=== PATIENT | female | born 1950 | race Caucasian/White ===

== ENCOUNTER 2016-12-05 12:28 | Emergency (ER) | payer OTHER ==
[2016-12-05 12:39] VITALS: BP 143/50; PULSE 76; RESP 16; TEMP 97.2; O2SAT 94
[2016-12-05] MEDS ORDERED: IPRATROPIUM/ALBUTEROL 3 ML DEYVIAL IH ONE (13:05)
[2016-12-05] MEDS ORDERED: DEXAMETHASONE 4 MG TAB PO ONE (13:05)
--- NOTE | 2016-12-05 13:35 | UCPHY ---
H & P Patient Type: New Chief Complaint Nursing Narrative: coughing post ingesting flavoring for water/ st Time Seen by Provider: 12/05/16 12:50 HPI/ROS: This patient used a flavor enhancer called Sukumar - forman flavored that she has a use intermittently but used to a large amount last night and shortly thereafter developed a swollen feeling in her throat continues associated with mild discomfort and feeling of tightness in the bronchi that feels similar to episodes she had with asthma in the past though she has not had asthma for years. She reports some anxiety associated with the symptoms. She went to a little clinic in grocery store this morning and they initially wanted to send her by ambulance the hospital but she declined and came here instead for evaluation. She reports frequent dry cough since the ingestion. ROS: No respiratory distress. No vomiting. No drooling stridor or hoarse voice. She felt well prior to ingesting the flavor enhancer. She reports no lightheadedness. And 7 point ROS is otherwise negative. Source: Patient Exam Limitations: No limitations - Personal History Current Tetanus/Diphtheria Vaccine: Yes - Medical/Surgical History PMH: Asthma -no symptoms for many years Hx Asthma: Yes Hx Chronic Respiratory Disease: No Hx Diabetes: No Hx Cardiac Disease: No Hx Renal Disease: No Hx Cirrhosis: No Hx Alcoholism: No Hx HIV/AIDS: No Hx Splenectomy or Spleen Trauma: No Other PMH: hip fx - Family History Significant Family History: No pertinent family hx - Social History Smoking Status: Never smoked Alcohol Use: Occasionally Drug Use: None - Physical Exam Exam: Physical Exam Vital signs are normal. General: No acute distress HEENT: Nose: Clear oropharynx: Clear with no erythema or exudates in posterior pharynx. No dysphonia. No drooling or stridor. Eyes: Pupils equal and react to light. Extraocular motions are intact. Lungs: Clear to auscultation bilaterally but with cough she has faint expiratory wheeze No respiratory distress. Cardiac: Regular rate and rhythm with no murmur gallop or rub Skin: No rash or pallor. Neuro: Alert and oriented x3 with no sensorimotor deficits. Initial differential diagnosis - allergy to the flavor enhancer, asthma exacerbation, laryngeal swelling Constitutional: Initial Vital Signs Temperature (C) 36.2 C 12/05/16 12:36 Heart Rate 76 12/05/16 12:36 Respiratory Rate 16 12/05/16 12:36 Blood Pressure 143/50 H 12/05/16 12:36 O2 Sat (%) 94 12/05/16 12:36 O2 Delivery Mode Room Air Allergies/Adverse Reactions: No Known Allergies Allergy (Verified 12/05/16 12:35) Home Medications: Medication Instructions Recorded Calcium Carbonate/Vitamin D3 1 each PO DAILY 08/29/14 [Calcium 500-Vit D3 200 Tablet] Cyanocobalamin (Vitamin B-12) 1,000 mcg PO DAILY 08/29/14 [B-12] Alendronate Sodium [Fosamax 70 MG 70 mg PO Q7D #4 tab 09/24/14 (*)] Cholecalciferol (Vitamin D3) 2,000 iunits PO DAILY #30 cap 09/24/14 [Cholecalciferol] Citalopram [CeleXA 20 MG] 40 mg PO DAILY #30 tab 09/24/14 Omeprazole [Prilosec 20 mg] 20 mg PO DAILY #30 capsule. 09/24/14 Albuterol Hfa Anes Only [Proair 2 puffs IH Q4 PRN #1 mdi 12/05/16 Hfa Icu (*)] Fluticasone Hfa 220 Mcg [Flovent 2 puffs IH DAILY #1 mdi 12/05/16 220 MCG Hfa MDI (*)] Medical Decision Making ED Course/Re-evaluation: Decadron 8 mg p.o. DuoNeb with resolution of her frequent cough and a subjective improvement. She declined anything for throat discomfort thereafter. I counseled patient regarding food allergies. Review of the ingredients reveals red number 40. I think it is likely that she has an allergy to his diaper counseled regarding this. She does not appear to have findings for anaphylaxis. No other concerning findings. - Data Points Medications Given: Discontinued Medications Albuterol/Ipratropium (Duoneb) 3 ml IH EDNOW ONE Stop: 12/05/16 13:06 Last Admin: 12/05/16 13:20 Dose: 3 ml Dexamethasone (Decadron) 8 mg PO EDNOW ONE Stop: 12/05/16 13:06 Last Admin: 12/05/16 13:18 Dose: 8 mg Departure - Departure Disposition: Home, Routine, Self-Care Clinical Impression: Food allergy Asthma Qualifiers: Asthma severity: mild intermittent Asthma complication type: with acute exacerbation Qualifier Code: (J45.21) Mild intermittent asthma with (acute) exacerbation Condition: Good Instructions: Asthma (ED) Additional Instructions: Diagnoses: 1. Food allergy 2. Asthma exacerbation Plan: Avoid red number 40 in the future Flovent steroid inhaler as prescribed He also received single dose of Decadron while here which is a steroid which should help with her symptoms. Albuterol inhaler with spacer if needed for cough, wheeze or shortness of breath Prescriptions: Fluticasone Hfa 220 Mcg [Flovent 220 MCG Hfa MDI (*)] 2 puffs IH DAILY #1 mdi Albuterol Hfa Anes Only [Proair Hfa Icu (*)] 2 puffs IH Q4 PRN #1 mdi PRN Reason: Wheezing - PQRS PQRS Measurement: 134: Depression screening and followup, PRIME MD-PHQ2 (12 years and older) Over the last 2 weeks, how often have you been bothered by any of the following problems? 1. Feeling down, depressed, or hopeless? 2. Little interest or pleasure in doing things? Patient answered no to both 1 and 2 130: Documentation of medications. Reviewed all patient medications, doses, route and frequency. 226: Do you smoke? [No.] 47: 65 and older: Advanced care planning. Patient designates surrogate decision maker as spouse 51: 18 years old and older with diagnosis of COPD, spirometry performance. NA 52: 18 years old and older with COPD and symptoms of COPD or FEV1<60% predicted prescribed a B Agonist. NA
== END 2016-12-05 14:03 | disposition home or self-care (01) ==
LOC: CED 12:28
DX: L27.2 Dermatitis due to ingested food (principal); J45.21 Mild intermittent asthma with (acute) exacerbation
CPT/HCPCS: 99204-PO; G0463-PO